=== PATIENT | male | born 1990 | race Caucasian/White ===

== ENCOUNTER 2022-07-11 10:06 | Emergency (ER) | payer BC ==
[~2022-07-11] VITALS: Ht 175.3 cm; Wt 99.0 kg
[2022-07-11 10:22] VITALS: BP 115/77
[2022-07-11 11:10] LABS: CLARITY URINE CLEAR (CLEAR); COLOR URINE YELLOW (YELLOW); KETONES URINE NEGATIVE (NEGATIVE); LEUKOCYTE ESTERASE URINE NEGATIVE (NEGATIVE); NITRITE URINE NEGATIVE (NEGATIVE); OCCULT BLOOD URINE NEGATIVE (NEGATIVE); PH URINE 5.5 (4.5-8.0); PROTEIN URINE NEGATIVE (NEGATIVE); SPECIFIC GRAVITY URINE 1.026 (1.005-1.030); UROBILINOGEN URINE 0.2 E.U./dL (0.2-1.0)
== END 2022-07-11 12:44 | disposition home or self-care (01) ==
LOC: ER 10:06
DX: N50.82 Scrotal pain (principal)
CPT/HCPCS: 76870; 81003; 93976; 99284

== ENCOUNTER 2022-08-21 12:16 | Emergency (ER) | payer BC ==
[~2022-08-21] VITALS: Ht 175.3 cm; Wt 100.0 kg
[2022-08-21 13:20] LABS: BASOPHILS % 0.8 % (0.0-2.0); EOSINOPHILS % 2.6 % (0.0-5.0); HEMATOCRIT. 43.7 % (42.0-52.0); HEMOGLOBIN. 15.2 g/dL (14.0-18.0); LYMPHOCYTES % 28.5 % (20.0-50.0); MEAN CORPUSCULAR HEMOGLOBIN 30.2 pg (28.0-32.0); MEAN PLATELET VOLUME 8.1 fl (7.4-10.4); MONOCYTES % 7.7 % (2.0-8.0); NEUTROPHILS % 60.4 % (40.0-76.0); PLATELET 295 x1000/uL (130-400); RED BLOOD CELL COUNT 5.02 mill/uL (4.7-6.1); RED CELL DISTRIBUTION WIDTH 13.1 % (11.6-14.6)
[2022-08-21 13:42] LABS: CHLORIDE 107 mEq/L (98-107)
[2022-08-21 13:54] LABS: ETHANOL BLOOD < 10 mg/dL
[2022-08-21] MEDS ORDERED: FAMOTIDINE 20MG TABLET PO ONE (16:00)
[2022-08-21] MEDS ORDERED: FAMO-135 MT (16:04)
[2022-08-21 16:48] VITALS: BP 136/74
== END 2022-08-21 16:49 | disposition home or self-care (01) ==
LOC: ER 13:35
DX: R10.13 Epigastric pain (principal); R11.0 Nausea; J45.909 Unspecified asthma, uncomplicated; Z90.49 Acquired absence of other specified parts of digestive tract
CPT/HCPCS: 36415; 80053; 80320; 85025; 99283; G0480